=== PATIENT | female | born 1945 | race Caucasian/White ===

== ENCOUNTER 2021-09-14 08:52 | Inpatient (IN) | payer MEDICARE, OTHER, SELFPAY ==
--- NOTE | 2021-09-14 09:02 | XR_ITS ---
WS: [id number] Left hip, 2 views, AP pelvis, 09/14/2021 Clinical Data: pain/fell Comparison: Left hip, 01/17/2014. Findings: There is an intertrochanteric fracture of the left hip. The right hip is intact. The pelvis shows no fractures. The SI joints and pubic symphysis are not remarkable. XR/XR hip LT 2-3V wo/w pel* [id number] Impression: Intertrochanteric fracture of the left hip.
--- NOTE | 2021-09-14 09:03 | ECG_ITS ---
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 Measurements Intervals [place] Rate: 65 P: 77 AR: 147 QRS: 57 QRSD: 86 T: 81 QT: 409 QTc: 428 Interpretive Statements SINUS RHYTHM LEFT VENTRICULAR HYPERTROPHY AND ST-T CHANGE [VOLTAGE CRITERIA PLUS ST/T ABNORMALITY] Compared to ECG 10/23/2017 15:34:19 Left ventricular hypertrophy now present ST (T wave) deviation now present Electronically Signed On 09-14-2021 19:25:27 CDT by Ora Pascual M.D. [id number]
[2021-09-14 09:05] VITALS: BP 152/74; PULSE 69; RESP 18; O2SAT 96; BMI 18.5
[2021-09-14 09:09] LABS: Basophils # 0.1 10^3/uL (0.0-0.1); Basophils % 0.6 %; Eosinophils # 0.3 10^3/uL (0.0-0.8); Eosinophils % 1.9 %; Hematocrit 34.9 % (37.0-47.0); Hemoglobin 11.5 g/dL (11.5-15.3); Lymphocytes # 5.6 10^3/uL (0.8-4.8); Lymphocytes % 40.3 %; Mean Corpuscular Volume 88.1 fl (81-99); Mean Platelet Volume 11.7 fL (7.4-10.4); Monocytes # 1.1 10^3/uL (0.2-0.9); Monocytes % 8.2 %; Neutrophils # 6.67 10^3/uL (1.8-7.7); Neutrophils % 48.1 %; Nucleated Red Blood Cells % 0 %; Platelet Count 215 10^3/cmm (130-400); Red Blood Count 3.96 10^6/uL (4.1-5.3); Red Cell Distribution Width 12.2 % (12.1-15.1); White Blood Count 13.9 10^3/uL (4.0-10.0)
[2021-09-14 09:35] LABS: Alanine Aminotransferase 10 U/L (0-33); Alkaline Phosphatase 109 IU/L (35-105); Anion Gap 15.5 (5-19); Aspartate Amino Transferase 14 U/L (0-32); Blood Urea Nitrogen 23 mg/dL (8-23); Calcium 9.5 mg/dL (8.5-10.5); Carbon Dioxide 25 mmol/L (22-29); Chloride 101 mmol/L (98-107); Globulin 3.1 g/dL (1.3-4.6); Glucose 236 mg/dL (65-115); Osmolality Calculated 295 mOsm/kg (285-295); Potassium 4.5 mmol/L (3.5-5.1); Sodium 137 mmol/L (136-145); Total Bilirubin 0.5 mg/dL (0.15-1.2); Total Protein 7.1 g/dL (6.6-8.7)
[2021-09-14 09:38] LABS: INR 1.03 (0.8-1.2); Partial Thromboplastin Time 24.6 SECONDS (23.9-36.7)
--- NOTE | 2021-09-14 09:39 | ED_ITS ---
HPI - Extremity Problem General: Chief complaint: Extremity Injury, Lower Stated complaint: FALL/ SHORTENING & ROTATION L LEG Time Seen by Provider: 09/14/21 09:01 Source: patient Mode of arrival: ambulatory Limitations: no limitations History of Present Illness: 76-year-old female was going down the stairs at home turned to look at her and lost her balance and stumbled on the stairs went down the stairs she denies striking head denies loss consciousness only a few steps that she has significant external rotation and shortening of her left leg and severe pain was given pain medicine in route discomfortable time she was examined. MD Complaint: extremity pain Onset (ago): minute(s) Pain Consistency: constant Quality: sharp Radiation: distal Relieving factors: rest Exacerbating factors: range of motion and palpation Associated symptoms: Deny arthralgias, chest pain, fever(s), myalgias, rash or short of breath Review of Systems Const: Denies: fever(s), chills, fatigue or malaise ENMT: Denies: throat pain, ear or mastoid pain, nasal discharge or nasal elver estion Card: Denies: chest pain Resp: Denies: dyspnea, productive cough or non-productive cough GI: Denies: abdominal pain, nausea, vomiting, hematemesis, coffee ground emesis, diarrhea, constipation, bloating, hematochezia or melena : Denies: flank pain, difficulty voiding, dysuria, urinary frequency or urinary urgency Skin/Breast: Denies: rash PFSH ED PFSH: Medical History Diabetes Essential tremor Hyperlipidemia Family History Other Cancer Dementia Social History Smoking and tobacco status: never smoked Alcohol intake: never Physical Exam Const: GENERAL APPEARANCE: cooperative ORIENTATION/CONSCIOUSNESS: Yes awake, Yes oriented to person, Yes oriented to place and Yes oriented to time HENMT: COMMON NORMALS: normocephalic, atraumatic and hearing grossly normal bilaterally HEAD & SCALP: normocephalic and atraumatic Neck/C-Spine: COMMON NORMALS: no JVD Resp: COMMON NORMALS: normal respiratory effort, No retractions, No use of accessory muscles and clear to auscultation bilaterally AUSCULTATION: clear to auscultation bilaterally Cardio: COMMON NORMALS: no JVD, regular rate, regular rhythm and No murmurs present (Cardio) RATE: regular rate RHYTHM: regular rhythm GI: COMMON NORMALS: Soft to palpation and No hepatosplenomegaly present AUSCULTATION: Yes normoactive bowel sounds PALPATION: Yes Soft to palpation, No Tenderness to palpation present (GI), No Guarding due to palpation present (GI) and Yes No hepatosplenomegaly present Extremity: OTHER: Left leg externally rotated shortened consistent with hip fracture confirmed on x-ray Neuro: SENSORIUM/ORIENTATION: Yes oriented to person, Yes oriented to place and Yes oriented to time Skin: COMMON NORMALS: no rashes or lesions noted GENERAL SKIN EXAM: no rashes or lesions noted Course Vital Signs: Vital signs: Vital Signs Pulse Rate 69 09/14/21 09:05 Respiratory Rate 18 09/14/21 09:05 Blood Pressure 152/74 09/14/21 09:05 Pulse Oximetry 96 09/14/21 09:05 MDM - Extremity (Nontraumatic) Medical Decision Making Left intertrochanteric hip fracture. Discussed with Dr. Cooper as well as Dr. Ritter who is on-call for Ortho. Will admit to [facility] consult Riya orders [facility]. Medical Records I reviewed the patient's medical records. Lab Data I reviewed the patient's lab results. : 09/14/21 07:59 09/14/21 07:59 Radiology Impressions Hip/Pelvis X-Ray 09/14/21 09:02 Impression: Intertrochanteric fracture of the left hip. Laboratory Results WBC 13.9 10^3/uL (4.0-10.0) H 09/14/21 07:59 RBC 3.96 10^6/uL (4.1-5.3) L 09/14/21 07:59 Hgb 11.5 g/dL (11.5-15.3) 09/14/21 07:59 Hct 34.9 % (37.0-47.0) L 09/14/21 07:59 MCV 88.1 fl (81-99) 09/14/21 07:59 MCH 29.0 pg (28.0-34.0) 09/14/21 07:59 MCHC 33.0 g/dL (30.0-36.0) 09/14/21 07:59 RDW 12.2 % (12.1-15.1) 09/14/21 07:59 Plt Count 215 10^3/cmm (130-400) 09/14/21 07:59 MPV 11.7 fL (7.4-10.4) H 09/14/21 07:59 Neut % (Auto) 48.1 % 09/14/21 07:59 Lymph % (Auto) 40.3 % 09/14/21 07:59 Hettinger % (Auto) 8.2 % 09/14/21 07:59 Eos % (Auto) 1.9 % 09/14/21 07:59 Baso % (Auto) 0.6 % 09/14/21 07:59 Neut # (Auto) 6.67 10^3/uL (1.8-7.7) 09/14/21 07:59 Lymph # (Auto) 5.6 10^3/uL (0.8-4.8) H 09/14/21 07:59 Hettinger # (Auto) 1.1 10^3/uL (0.2-0.9) H 09/14/21 07:59 Eos # (Auto) 0.3 10^3/uL (0.0-0.8) 09/14/21 07:59 Baso # (Auto) 0.1 10^3/uL (0.0-0.1) 09/14/21 07:59 Nucleated RBC % (auto) 0 % 09/14/21 07:59 Nucleated RBCs # 0.0 /100WBC 09/14/21 07:59 PT 13.80 SECONDS (12.1-14.9) 09/14/21 09:20 INR 1.03 (0.8-1.2) 09/14/21 09:20 APTT 24.6 SECONDS (23.9-36.7) 09/14/21 09:20 Sodium 137 mmol/L (136-145) 09/14/21 07:59 Potassium 4.5 mmol/L (3.5-5.1) 09/14/21 07:59 Chloride 101 mmol/L (98-107) 09/14/21 07:59 Carbon Dioxide 25 mmol/L (22-29) 09/14/21 07:59 Anion Gap 15.5 (5-19) 09/14/21 07:59 BUN 23 mg/dL (8-23) 09/14/21 07:59 Creatinine 1.7 mg/dL (0.5-0.9) H 09/14/21 07:59 GFR Calculation Not Reportable 09/14/21 07:59 Glucose 236 mg/dL (65-115) H 09/14/21 07:59 Calculated Osmolality 295 mOsm/kg (285-295) 09/14/21 07:59 Calcium 9.5 mg/dL (8.5-10.5) 09/14/21 07:59 Total Bilirubin 0.5 mg/dL (0.15-1.2) 09/14/21 07:59 AST 14 U/L (0-32) 09/14/21 07:59 ALT 10 U/L (0-33) 09/14/21 07:59 Alkaline Phosphatase 109 IU/L (35-105) H 09/14/21 07:59 Creatine Kinase 39 U/L (26-192) 09/14/21 08:59 Total Protein 7.1 g/dL (6.6-8.7) 09/14/21 07:59 Albumin 4.0 g/dL (3.5-5.2) 09/14/21 07:59 Globulin 3.1 g/dL (1.3-4.6) 09/14/21 07:59 TSH 1.73 uIU/mL (0.27-4.20) 09/14/21 08:59 Discharge Plan Discharge Patient Disposition: Admitted As Inpatient Clinical Impression: Fracture of hip, Diabetes, Hyperlipidemia, CKD (chronic kidney disease) Condition: Stable Coding Level of Care Code ED Rubber Flap Cutter for Chg Fwd Exam Detailed
--- NOTE | 2021-09-14 10:06 | P.HP_ITS ---
Providers/Chief Complaint Admitting Physician: Carlos Melton MD, hospitalist Chief Complaint: FALL/ SHORTENING & ROTATION L LEG History of Present Illness Nallely Potter is a 76 year old female who presents to the hospital with complai nts of left hip pain after a fall. relates she missed a step. No loss of consciousness or other injuries. She does not have frequent falls, but has some imbalance possibly secondary to Parkinson's but this has not been confirmed. She is being followed expectantly by neurology. No recent illness. No chest pain or shortness of breath. Had immediate pain, left hip area following fall. Denies any headache, neck pain, or other pain other than left hip. Review of Systems General: Reports: 10 or more systems reviewed and unremarkable except in HPI and below Const: Denies: fever(s) or chills Eyes: Denies: change in vision ENMT: Denies: throat pain Card: Denies: chest pain Resp: Denies: dyspnea GI: Denies: abdominal pain, hematochezia or melena : Denies: flank pain Musc: Reports: extremity pain; Denies: neck pain Skin/Breast: Denies: rash Neuro: Denies: headache(s) Psych: Denies: anxiety or depression Endo: Denies: polyuria Ramses/Lymph: Denies: easy bruising All/Imm: Denies: urticaria Medications/Allergies Home Medications Medication Instructions Recorded Confirmed Last Taken Type atorvastatin 20 mg tablet 20 mg PO QPM 09/14/21 09/14/21 09/13/21 History metformin 500 mg tablet 1,000 mg PO BID 09/14/21 09/14/21 09/14/21 History propranolol 20 mg tablet 20 mg PO BID 09/14/21 09/14/21 09/14/21 History Allergies Allergy/AdvReac Type Severity Reaction Status Date / Time No Known Allergies Allergy Verified 09/14/21 09:43 PFSH Acute PFSH: Medical History Diabetes Essential tremor Hyperlipidemia Family History (Updated 09/14/21 @ 10:18 by Carlos Melton MD) Other Cancer Dementia Social History Smoking and tobacco status: never smoked Alcohol intake: never Other PFSH information: Supplemental PFSH Information: No surgeries. Vitals/I&O/Wt Last Vital Signs Pulse 69 09/14/21 09:05 Resp 18 09/14/21 09:05 BP 152/74 09/14/21 09:05 Pulse Ox 96 09/14/21 09:05 Weight last 48 hrs Weight 43.091 kg Physical Exam Narrative: General exam is no distress, conversant pleasant HEENT: Atraumatic normocephalic. Pupils equally round. Oropharynx clear. Neck is supple no lymphadenopathy or thyromegaly Cardiovascular regular rate and rhythm without murmur, no S3 or S4 Lungs clear no wheezing or crackles Abdomen is soft with positive bowel sounds. No obvious organomegaly exam was deferred Extremities no cyanosis clubbing or edema. Pulses are intact. Cap refill brisk. Left lower extremity externally rotated and shortened Skin no rash Neuro no obvious focal deficits. Data : 09/14/21 07:59 09/14/21 07:59 Other Labs: EKG demonstrates normal sinus rhythm, normal axis, some evidence of LVH X-ray shows left intertrochanteric hip fracture LFTs normal with exception of alk phos of 109. A&P Assessment and plan (1) Fracture of hip: Has left intertrochanteric hip fracture. No other obvious injuries. Orthopedic consultation Surgery planned for tomorrow No direct contraindications to surgery Heparin for DVT prophylaxis Status: Acute (2) CKD (chronic kidney disease): Unknown if this is acute kidney injury or chronic kidney disease. I suspect chronic kidney disease. Place Ling secondary to hip fracture She denies any anti-inflammatory use at home Repeat creatinine tomorrow after hydration. If does not improve consider renal ultrasound Check CK Check urinalysis Status: Acute (3) Diabetes: Hold metformin Mild sliding scale insulin Consistent carb diet Status: Acute (4) Hyperlipidemia: Continue statin Status: Acute (5) Essential tremor: Continue propranolol Status: Acute Plan Full code Heparin for DVT prophylaxis Attestations Medical Necessity Statement*: Will need greater than 2 midnight stay for evaluation and treatment as well as definitive care for hip fracture with surgery. Coding Level of Care Code Acute Building Construction Contractor for Erin Bhatt Diagnoses Fracture of hip S72.009A CKD (chronic kidney disease) N18.9 Diabetes E11.9 Hyperlipidemia E78.5 Essential tremor G25.0
[2021-09-14 10:49] LABS: Creatine Phosphokinase 39 U/L (26-192); Thyroid Stimulating Hormone 1.73 uIU/mL (0.27-4.20)
[2021-09-14 12:52] VITALS: BP 160/96; PULSE 75; RESP 14; O2SAT 100
--- NOTE | 2021-09-14 14:09 | PM.CONSULT ---
Providers/Reason For Consult Consulting Physician/Specialty*: Orthopedics Reason for Consult*: Left Hip Pain Attending Physician: Carlos Melton MD History of Present Illness History of Present Illness Nallely Potter is a 76 year old female ambulating at her residence on 09/14/2021 when she missed a step fell sustaining injury to her left hip. She felt immediate pain with inability to move without severe sharp stabbing pain. She presented to [facility] emergency room where x-rays confirmed a left hip fracture she was then admitted for more definitive treatment. Orthopedics was consulted. She was evaluated in room 259 bed to with continued left hip pain that she describes as sharp stabbing in nature. Any movement makes it much worse. No obvious left lower extremity deformity. She denies any neck or back pain denies any shoulder or wrist pain. Rest gives her some temporary relief. Any movement makes it much worse. She ranks it as 5 out of 10 on the pain scale. An extensive review of the patient's past medical history, surgical history, allergies, medications, family history, social history, and review of systems was completed Review of Systems General: Reports: 10 or more systems reviewed and unremarkable except in HPI and below Const: Denies: fever(s) or chills Eyes: Denies: change in vision ENMT: Denies: throat pain Card: Denies: chest pain Resp: Denies: dyspnea GI: Denies: abdominal pain, hematochezia or melena : Denies: flank pain Musc: Reports: extremity pain; Denies: neck pain Skin/Breast: Denies: rash Neuro: Denies: headache(s) Psych: Denies: anxiety or depression Endo: Denies: polyuria Ramses/Lymph: Denies: easy bruising All/Imm: Denies: urticaria Medications/Allergies Home Medications Medication Instructions Recorded Confirmed Last Taken Type atorvastatin 20 mg tablet 20 mg PO QPM 09/14/21 09/14/21 09/13/21 History metformin 500 mg tablet 1,000 mg PO BID 09/14/21 09/14/21 09/14/21 History propranolol 20 mg tablet 20 mg PO BID 09/14/21 09/14/21 09/14/21 History Allergies Allergy/AdvReac Type Severity Reaction Status Date / Time No Known Allergies Allergy Verified 09/14/21 09:43 PFSH Acute PFSH: Medical History Diabetes Essential tremor Hyperlipidemia Family History Other Cancer Dementia Social History Smoking and tobacco status: never smoked Alcohol intake: never Vitals/I&O/Wt Last Vital Signs Pulse 75 09/14/21 12:52 Resp 14 09/14/21 12:52 BP 160/96 09/14/21 12:52 Pulse Ox 100 09/14/21 12:52 Weight last 48 hrs Weight 95 lb Physical Exam Narrative: She is alert and orient x3 she has a good general appearance normal mood and affect. She has obvious deformity of the left lower extremity. Positive logroll on the left negative on the right. She has palpable pain over the left hip negative over the right. She has no palpable pain in the low back or thoracic region. Her legs are warm skin is warm good cap refill she wiggles all digits dorsalis pedis and posterior tib pulses are palpable on the on both lower extremities, calves are supple, no medial thigh tenderness. She wiggles all digits. No palpable pain in the cervical spine full range of motion both upper extremities at the shoulders elbows and wrists hands warm well cap refill moves all digits with good sensation light touch. HENMT: COMMON NORMALS: normocephalic and atraumatic HEAD & SCALP: normocephalic and atraumatic Resp: COMMON NORMALS: normal respiratory effort Cardio: COMMON NORMALS: regular rate and regular rhythm RATE: regular rate RHYTHM: regular rhythm GI: COMMON NORMALS: Soft to palpation and non-tender PALPATION: Yes Soft to palpation : COMMON NORMALS: Yes no CVA tenderness BLADDER/KIDNEY EXAM: Yes no CVA tenderness Back/Pelvis: COMMON NORMALS: no CVA tenderness Psych: COMMON NORMALS: mental status grossly normal and cooperative Data : 09/14/21 07:59 09/14/21 07:59 A&P Assessment and plan (1) Intertrochanteric fracture of left hip: Discussed with her treatment options which involve open reduction internal fixation of her left hip with a trochanteric femoral nail. Discussed the procedure at length with her. She wished to proceed. We will keep her n.p.o. after midnight. Should be nonweightbearing until after surgery. Encourage incentive spirometry. Discussed this treatment course at length with Dr. Ritter agrees with above-stated plan. Status: Acute Coding Level of Care Code New Pt Acute Horticultural Farmer for Jeffreyg Fwd Patient Type New History Problem Focused Exam Problem Focused Medical Decision Making Moderate Complexity Diagnoses Intertrochanteric fracture of left hip S72.142B
[2021-09-14 15:12] VITALS: BMI 18.5
[2021-09-14 15:48] VITALS: BP 174/85; PULSE 80; RESP 16; TEMP 37.2; O2SAT 96
[2021-09-14 17:05] LABS: Glucose Point of Care 234 mg/dL (70-110)
[2021-09-14 17:34] LABS: Protein Urine 2+ (Negative); Specific Gravity, Urine 1.015 (1.005-1.030); Urine Appearance Hazy (CLEAR); Urine Color Yellow (Yellow); pH Urine 5 (5-7)
[2021-09-14] MEDS: sodium chloride 0.9% 1,000 ML 75 ML IV (17:34)
[2021-09-14] MEDS: atorvastatin 40 mg Tablet 20 MG PO (17:34)
[2021-09-14 17:35] LABS: Add Urine Microscopic? YES; Bilirubin Urine Neg (Negative); Blood Urine Neg (Negative); Glucose Urine UA 2+ (Normal); Ketones Urine Negative (Negative); Leukocyte Esterase Urine 2+ (Negative); Nitrate Urine Positive (Negative); Urobilinogen Urine Norm (Negative)
[2021-09-14] MEDS: heparin 5,000 unit/mL INJ 1 mL 5000 UNIT SUBCUT (17:35)
[2021-09-14] MEDS: propranolol 20 mg Tablet PO (17:35)
[2021-09-14] MEDS: insulin lispro 100 unit/1 mL SUBCUT ×2 (17:35→21:11)
[2021-09-14 17:48] LABS: Add Urine Culture? Yes; Bacteria Urine 2+ /hpf; RBC Urine 0-4 /hpf (0-2); Squamous Epithelial Cell Urine 0-4 /hpf (0-5); WBC Urine 15-25 /hpf (0-5)
[2021-09-14 17:52] VITALS: O2SAT 95
[2021-09-14 20:00] VITALS: BP 168/74; PULSE 74; RESP 22; TEMP 37.2; O2SAT 92
[2021-09-14 20:13] VITALS: RESP 18
[2021-09-14] MEDS: morphine 4 mg/mL SDV 1 mL IVP (20:13)
[2021-09-14 21:05] LABS: Glucose Point of Care 169 mg/dL (70-110)
[2021-09-15] VITALS (23 sets, daily range): BP systolic 147–227; BP diastolic 60–109; PULSE 65–89; RESP 15–23; TEMP 36.3–37.4; O2SAT 91–100
--- NOTE | 2021-09-15 | SCC_ITS ---
Procedure done: 1. Left IM hip nail for IT fracture 44.3 seconds of fluoroscopic guidance, for a cumulative dose of 4.49 mGy, was provided to Dr. Ritter by the radiology department. C-arm images of the LT hip were saved for the patient's permanent record. [facility]
[2021-09-15] MEDS: sodium chloride 0.9% 1,000 ML 75 ML IV (04:21)
[2021-09-15] MEDS: sodium chloride 0.9% 1,000 ML 30 ML IV (06:25)
[2021-09-15 06:36] LABS: Basophils # 0.1 10^3/uL (0.0-0.1); Basophils % 0.5 %; Eosinophils # 0.2 10^3/uL (0.0-0.8); Eosinophils % 1.4 %; Hematocrit 32.9 % (37.0-47.0); Hemoglobin 10.3 g/dL (11.5-15.3); Lymphocytes # 3.4 10^3/uL (0.8-4.8); Lymphocytes % 26.3 %; Mean Corpuscular HGB Conc 31.3 g/dL (30.0-36.0); Mean Corpuscular Hemoglobin 28.3 pg (28.0-34.0); Mean Corpuscular Volume 90.4 fl (81-99); Mean Platelet Volume 11.2 fL (7.4-10.4); Monocytes % 7.4 %; Neutrophils # 8.19 10^3/uL (1.8-7.7); Neutrophils % 63.9 %; Nucleated Red Blood Cells % 0 %; Platelet Count 173 10^3/cmm (130-400); Red Blood Count 3.64 10^6/uL (4.1-5.3); Red Cell Distribution Width 12.2 % (12.1-15.1); White Blood Count 12.8 10^3/uL (4.0-10.0)
--- NOTE | 2021-09-15 06:50 | ANES.PREANE2 ---
Documented by User: Adelita Lyles CRNA 09/15/21 07:30 Pre-Anesthetic Assessment Height/Weight: Height 1.52 m Weight 54.703 kg Temp Pulse Resp BP Pulse Ox 99.3 F 77 17 193/87 96 09/15/21 06:19 09/15/21 06:19 09/15/21 06:19 09/15/21 06:19 09/15/21 06:19 Preop Diagnosis: L hip fracture Operation Date: 09/15/21 07:00 Proposed Procedures p Trochanteric Femoral Nail(Left) - Rosas Ritter DO Familial anesthetic complications: none Was Beta Sreedhar taken within 24 hours: N/A Was Clonidine taken within 24 hours: N/A Last intake: Intake Last Liquid Date 09/14/21 Last Liquid Time 23:00 Last Solid Date 09/14/21 Last Solid Time 20:00 Social No alcohol and No tobacco Exam alert, oriented x 3, clear to auscultation bilaterally and regular rate & rhythm Airway Submandibular: within normal limits Cervical ROM: within normal limits Mallampati: Class II Dentition: false (top dentures. full bottom) History/ROS No significant history except as noted Pulmonary None reported CV/HEM None reported None reported Hepatic None reported GI None reported Metabolic Diabetes Mellitus (metofrmin only) and Hyperlipidemia Musc/skel None reported Neuropsych None reported Anesthetic Plan ASA status: 2 Anesthesia: Anesthesia Evaluation and General Risk of > 500 ml blood loss (7ml/kg in children): No Medications/Allergies Home Medications Medication Instructions Recorded Confirmed Last Taken Type atorvastatin 20 mg tablet 20 mg PO QPM 09/14/21 09/14/21 09/13/21 History metformin 500 mg tablet 1,000 mg PO BID 09/14/21 09/14/21 09/14/21 History propranolol 20 mg tablet 20 mg PO BID 09/14/21 09/14/21 09/14/21 History Allergies Allergy/AdvReac Type Severity Reaction Status Date / Time No Known Allergies Allergy Verified 09/14/21 09:43 Current Medications Generic Name Dose Route Start Last Admin Trade Name Freq PRN Reason Stop Dose Admin Atorvastatin Calcium 20 mg 09/14/21 18:00 09/14/21 17:34 Atorvastatin 40 Mg Tablet PO 20 mg QPM JUNE Administration Heparin Sodium (Porcine) 5,000 unit 09/14/21 18:00 09/15/21 05:01 Heparin 5,000 Unit/Ml Inj 1 Ml SUBCUT Not Given Q12H JUNE Sodium Chloride 1,000 mls @ 75 mls/hr 09/14/21 15:06 09/15/21 04:21 Sodium Chloride 0.9% IV 75 mls/hr .[id number] JUNE Administration Sodium Chloride 1,000 mls @ 30 mls/hr 09/15/21 06:30 09/15/21 06:25 Sodium Chloride 0.9% IV 09/16/21 06:29 30 mls/hr .Q24H JUNE Administration Insulin Human Lispro 0 unit 09/14/21 15:06 09/14/21 21:11 Insulin Lispro 100 Unit/1 Ml SUBCUT 2 unit WM&BEDTIME JUNE Administration Protocol Morphine Sulfate 4 mg 09/14/21 15:06 09/14/21 20:13 Morphine 4 Mg/Ml Sdv 1 Ml IVP 4 mg Q4H PRN Administration SEVERE PAIN Propranolol HCl 20 mg 09/14/21 18:00 09/14/21 17:35 Propranolol 20 Mg Tablet PO 20 mg BID JUNE Administration [facility] Anesthesia Medical History Diabetes Essential tremor Hyperlipidemia Family History Other Cancer Dementia Social History Smoking and tobacco status: never smoked Alcohol intake: never Supplemental [facility] Information No surgeries. Data Anesthesia : 09/15/21 06:27 09/15/21 06:27 Short CBC 09/14/21 09/15/21 Range/Units 07:59 06:27 WBC 13.9 H 12.8 H (4.0-10.0) 10^3/uL Hgb 11.5 10.3 L (11.5-15.3) g/dL Hct 34.9 L 32.9 L (37.0-47.0) % MCV 88.1 90.4 (81-99) fl Plt Count 215 173 (130-400) 10^3/cmm Neut % (Auto) 48.1 63.9 % Neut # (Auto) 6.67 8.19 H (1.8-7.7) 10^3/uL BMP 09/14/21 09/15/21 07:59 06:27 Sodium 137 132 L Potassium 4.5 4.9 Chloride 101 99 Carbon Dioxide 25 24 BUN 23 27 H Creatinine 1.7 H 1.5 H Glucose 236 H 209 H Calcium 9.5 8.7 Cardiac Enzymes 09/14/21 Range/Units 08:59 Creatine Kinase 39 (26-192) U/L Liver Function 09/14/21 09/15/21 Range/Units 07:59 06:27 Total Bilirubin 0.5 0.5 (0.15-1.2) mg/dL AST 14 12 (0-32) U/L ALT 10 8 (0-33) U/L Alkaline Phosphatase 109 H 90 (35-105) IU/L Albumin 4.0 3.6 (3.5-5.2) g/dL Urine 09/14/21 Range/Units 17:00 Urine Color Yellow (Yellow) Urine Appearance Hazy A (CLEAR) Urine pH 5 (5-7) Ur Specific Castell 1.015 (1.005-1.030) Urine Protein 2+ H (Negative) Urine Glucose (UA) 2+ H (Normal) Urine Ketones Negative (Negative) Urine Nitrate Positive H (Negative) Urine Bilirubin Neg (Negative) Ur Leukocyte Esterase 2+ H (Negative) Urine RBC 0-4 H (0-2) /hpf Urine WBC 15-25 H (0-5) /hpf Coags 09/14/21 09:20 PT 13.80 INR 1.03 APTT 24.6 Cardiac Studies: No Data to Display
--- NOTE | 2021-09-15 06:52 | W.PM.OPSUD ---
Surgery/Procedure H&P Update DATE OF PROCEDURE: September 15, 2021 DATE H&P PERFORMED: 09/14/21 H&P UPDATE INFORMATION: I have reviewed H&P completed within last 30 days, I have examined patient prior to procedure and No changes to prior documentation PLANNED PROCEDURE: Operation Date: 09/15/21 07:00 Proposed Procedures p Trochanteric Femoral Nail(Left) - Rosas Ritter DO
[2021-09-15 06:53] LABS: Alanine Aminotransferase 8 U/L (0-33); Albumin Level 3.6 g/dL (3.5-5.2); Alkaline Phosphatase 90 IU/L (35-105); Anion Gap 13.9 (5-19); Aspartate Amino Transferase 12 U/L (0-32); Blood Urea Nitrogen 27 mg/dL (8-23); Calcium 8.7 mg/dL (8.5-10.5); Carbon Dioxide 24 mmol/L (22-29); Chloride 99 mmol/L (98-107); Glucose 209 mg/dL (65-115); Osmolality Calculated 285 mOsm/kg (285-295); Potassium 4.9 mmol/L (3.5-5.1); Sodium 132 mmol/L (136-145); Total Bilirubin 0.5 mg/dL (0.15-1.2); Total Protein 6.6 g/dL (6.6-8.7)
[2021-09-15] MEDS: ceFAZolin 2,000 MG in sodium chloride 0.9% (plus) 50 ML 100 MG IV ×3 (07:00→23:02)
--- NOTE | 2021-09-15 07:38 | PM.OP ---
Operative Report Date of procedure: September 15, 2021 Pre-op diagnosis: Preop Diagnosis L hip fracture Post-op diagnosis: same Procedure done: 1. Left IM hip nail for IT fracture Surgeon: Rosas Ritter Neonatal Intensive Care Nurse: Edgar Olvera Estimated blood loss (mL): 5 Procedure: 1. Left IM hip nail for IT fracture Patient was brought to the operative suite after undergoing anesthesia patient was placed on the [place] fracture table. All areas impingement well-padded. Patient's left leg was hooked into the boot and internal rotation and traction was applied to reduce the fracture. C-arm ensured that the fracture was in good position. Leg was then prepped and draped in normal sterile fashion. Skin incision was then made over the greater trochanter. And then the starting pin was inserted opening reamer was inserted and then a gamma nail was inserted. Once the nail was inserted the appropriate position a guidewire was then placed into the center center position of the femoral head. This was then reamed and then the lag screw was placed this was a 95 mm lag screw. After the screws placed the locking bolt was tightened down and taken off one half turn. Extension was brought to the distal locking screw. This was measured to be 35 and a distal locking screw was placed. Wounds were then irrigated and closed with Vicryl and solomon. Sterile dressings were applied and patient was transferred to the PACU in stable condition.
[2021-09-15] MEDS: metoprolol tartrate 1 mg/1 mL SDV 5 mL 5 MG IVP (08:26)
--- NOTE | 2021-09-15 08:40 | PM.PN ---
Subjective Subjective: Nallely is interviewed directly postoperative. She denies any significant pain currently. She denies any shortness of breath. She is excited her surgery went well. Medications: Reviewed: Yes Vitals/I&O/Wt Last Vital Signs Temp 98.9 F 09/15/21 07:53 Pulse 65 09/15/21 08:35 Resp 16 09/15/21 08:35 BP 209/97 09/15/21 08:35 Pulse Ox 96 09/15/21 08:35 09/14/21 09/15/21 09/15/21 22:59 06:59 14:59 Intake Total 740 / 740 1148.75 / 1888.75 450 / 450 Output Total 600 / 600 100 / 700 575 / 575 Balance 140 / 140 1048.75 / 1188.75 -125 / -125 Weight last 48 hrs Weight 54.703 kg Weight 43.091 kg Weight 43.091 kg Physical Exam Narrative: General exam is no distress, sleepy but conversive Neck is supple no lymphadenopathy or thyromegaly Cardiovascular regular rate and rhythm without murmur, no S3 or S4 Lungs clear no wheezing or crackles Abdomen is soft with positive bowel sounds. No obvious organomegaly exam Ling noted Extremities no cyanosis clubbing or edema. Pulses are intact. Cap refill brisk. Left lower extremity with dressing in the hip region clean and dry Skin no rash Urinary Catheter Management: Ling: Cath Placed During This Visit: yes Urinary Catheter Date of Insertion: 09/14/21 Urinary Catheter Time of Insertion: 14:00 Data : 09/15/21 06:27 09/15/21 06:27 A&P Assessment and plan (1) Fracture of hip: Has left intertrochanteric hip fracture. No other obvious injuries. Orthopedic consultation appreciated She is directly postoperative left hip IM nailing Lovenox okay for DVT prophylaxis Status: Acute (2) CKD (chronic kidney disease): Unknown if this is acute kidney injury or chronic kidney disease. I suspect chronic kidney disease. Place Ling secondary to hip fracture She denies any anti-inflammatory use at home This has improved somewhat CK was checked and not elevated Continue to follow for further improvement Urinalysis shows questionable UTI. Rocephin initiated Avoid renal toxic medication, NSAIDs Status: Acute (3) Diabetes: Hold metformin Mild sliding scale insulin Consistent carb diet Status: Acute (4) Hyperlipidemia: Continue statin Status: Acute (5) Essential tremor: Continue propranolol Status: Acute Plan Possible UTI. Initiate Rocephin. Await urine culture Full code Lovenox for DVT prophylaxis Attestations Medical Necessity Statement*: Needs continued hospitalization for close monitoring following hip fracture repair Coding Level of Care Code Acute Motor Vehicle Representative for Chg Fwd Diagnoses Fracture of hip S72.009A CKD (chronic kidney disease) N18.9 Diabetes E11.9 Hyperlipidemia E78.5 Essential tremor G25.0
[2021-09-15] MEDS: hyDRALAzine 20 mg/mL INJ 1 mL 10 MG IVP (08:51)
--- NOTE | 2021-09-15 09:51 | XR_ITS ---
WS: [id number] Left hip, C-arm fluoroscopy, 09/15/2021 Clinical Data: OR PICS Comparison: None. Findings: Dr. Ritter inserted a left hip nail with a proximal left intramedullary nkechi to reduce the left hip int ertrochanteric fracture. XR/XR hip LT 2-3V wo/w pel* 61602 Impression: Internal fixation of left hip intertrochanteric fracture.
[2021-09-15 11:07] LABS: Glucose Point of Care 239 mg/dL (70-110)
--- NOTE | 2021-09-15 12:17 | ANE.PACU2 ---
Inpatient post-anesthesia follow up: Airway intact: Yes Vital signs: Temperature 98.0 F Pulse Rate 74 Respiratory Rate 16 Blood Pressure 169/77 Pulse Oximetry 95 Oxygen Delivery Me thod [ Room Air Current Rate & Del dio] Oxygen Delivery Me thod Nasal Cannula Oxygen Flow Rate 1.5 Fraction of Inspir ed Oxygen Hydration adequate: Yes Nausea and vomiting: No Pain level: 3 Mental status: Baseline
[2021-09-15] MEDS: insulin lispro 100 unit/1 mL SUBCUT ×3 (12:26→21:11)
[2021-09-15 17:06] LABS: Glucose Point of Care 457 mg/dL (70-110)
[2021-09-15 17:06] LABS: Glucose Point of Care 464 mg/dL (70-110)
[2021-09-15] MEDS: atorvastatin 40 mg Tablet 20 MG PO (17:41)
[2021-09-15] MEDS: propranolol 20 mg Tablet PO (17:41)
[2021-09-15] MEDS: enoxaparin 30 mg/0.3 mL Syringe SUBCUT (20:23)
[2021-09-15 21:04] LABS: Glucose Point of Care 246 mg/dL (70-110)
[2021-09-16] VITALS: BP 163/73; PULSE 73; RESP 18; TEMP 36.9; O2SAT 96
[2021-09-16 04:00] VITALS: BP 193/68; PULSE 79; RESP 19; TEMP 36.9; O2SAT 92
[2021-09-16] MEDS: hyDRALAzine 20 mg/mL INJ 1 mL 10 MG IVP (04:54)
[2021-09-16] MEDS: sodium chloride 0.9% 1,000 ML 75 ML IV (05:05)
[2021-09-16 05:08] LABS: Basophils # 0.1 10^3/uL (0.0-0.1); Basophils % 0.3 %; Eosinophils % 0.2 %; Hematocrit 26.3 % (37.0-47.0); Hemoglobin 8.4 g/dL (11.5-15.3); Lymphocytes # 3.3 10^3/uL (0.8-4.8); Lymphocytes % 16.6 %; Mean Corpuscular HGB Conc 31.9 g/dL (30.0-36.0); Mean Corpuscular Hemoglobin 28.8 pg (28.0-34.0); Mean Corpuscular Volume 90.1 fl (81-99); Mean Platelet Volume 11.7 fL (7.4-10.4); Monocytes # 1.5 10^3/uL (0.2-0.9); Monocytes % 7.2 %; Neutrophils # 15.14 10^3/uL (1.8-7.7); Neutrophils % 75.1 %; Nucleated Red Blood Cells % 0 %; Platelet Count 165 10^3/cmm (130-400); Red Blood Count 2.92 10^6/uL (4.1-5.3); Red Cell Distribution Width 12.1 % (12.1-15.1); White Blood Count 20.2 10^3/uL (4.0-10.0)
[2021-09-16 05:31] LABS: Anion Gap 15.4 (5-19); Blood Urea Nitrogen 28 mg/dL (8-23); Calcium 8.2 mg/dL (8.5-10.5); Carbon Dioxide 19 mmol/L (22-29); Chloride 105 mmol/L (98-107); Glucose 148 mg/dL (65-115); Osmolality Calculated 288 mOsm/kg (285-295); Potassium 4.4 mmol/L (3.5-5.1); Sodium 135 mmol/L (136-145)
[2021-09-16 06:14] LABS: Glucose Point of Care 189 mg/dL (70-110)
[2021-09-16] MEDS: ceFAZolin 2,000 MG in sodium chloride 0.9% (plus) 50 ML 100 MG IV (06:33)
[2021-09-16 07:49] VITALS: BP 168/71; PULSE 91; RESP 16; TEMP 36.8; O2SAT 93
[2021-09-16 08:39] LABS: Glucose Point of Care 216 mg/dL (70-110)
[2021-09-16] MEDS: cefTRIAXone 1,000 MG in sodium chloride 0.9% (plus) 50 ML 100 MG IV (09:04)
[2021-09-16] MEDS: insulin lispro 100 unit/1 mL SUBCUT ×2 (09:06→12:55)
[2021-09-16] MEDS: propranolol 20 mg Tablet PO (09:07)
[2021-09-16 11:43] LABS: Glucose Point of Care 226 mg/dL (70-110)
[2021-09-16 11:45] VITALS: BP 153/74; PULSE 74; RESP 16; TEMP 36.8; O2SAT 93
--- NOTE | 2021-09-16 12:33 | P.DS_ITS ---
Discharge Providers Date of Admission: 09/14/21 10:16 Date of Discharge: September 16, 2021 Attending Provider at Admission: Carlos Melton MD Attending Provider at Discharge: Ajith Courtney MD Diagnoses at Discharge Discharge Diagnosis (1) Fracture of hip: Status: Acute (2) CKD (chronic kidney disease): Status: Acute (3) Diabetes: Status: Acute (4) Hyperlipidemia: Status: Acute (5) Essential tremor: Status: Acute Reason for Visit Reason for Visit: FALL/ SHORTENING & ROTATION L LEG Hospital Course Hospital Course 76 year old female who presents to the hospital with complaints of left hip pain after a fall.? relates she missed a step.? No loss of consciousness or other injuries. She was admitted for management of ?left intertrochanteric hip fracture.? S/p Left IM hip nail. Also managed for QUITA on CKD likely prerenal was responding well to IV fluids, serum creatinine was trending down on discharge. Overall patient responded well to above surgical management, and is being discharged in stable condition to home, she will continue to follow orthopedic and primary care physician as outpatient. Physical Exam Const: COMMON NORMALS: patient oriented x3 HENMT: COMMON NORMALS: normocephalic and atraumatic HEAD & SCALP: normocephalic and atraumatic Resp: COMMON NORMALS: clear to auscultation bilaterally AUSCULTATION: clear to auscultation bilaterally Cardio: COMMON NORMALS: regular rate, regular rhythm, S1 normal heart sound present, S2 normal heart sound present, No gallops present (Cardio), No murmurs present (Cardio), No rub (Cardio) and Peripheral pulses 2+ throughout RATE: regular rate RHYTHM: regular rhythm HEART SOUNDS: S1 normal heart sound present and S2 normal heart sound present PERIPHERAL PULSES: Peripheral pulses 2+ throughout GI: COMMON NORMALS: Normal to inspection, nondistended, normoactive bowel sounds present, Soft to palpation, non-tender, No hepatosplenomegaly present and no masses AUSCULTATION: Yes normoactive bowel sounds PALPATION: Yes Soft to palpation and Yes No hepatosplenomegaly present RECTAL EXAM: deferred Extremity: COMMON NORMALS: no clubbing, cyanosis or edema and no pedal edema Neuro: COMMON NORMALS: patient oriented x3 Urinary Catheter Management: Ling: Cath Placed During This Visit: yes Reason for Continuing Indwelling Catheter: Required Immobilization for Trauma or Surgery or Anesthesia Urinary Catheter Date of Insertion: 09/14/21 Urinary Catheter Time of Insertion: 14:00 Discharge Data Studies Completed and Pending Completed Studies During Hospitalization Category Date Time Status XR hip LT 2-3V wo/w pel* [id number] Routine Exams 09/15/21 09:51 Completed XR hip LT 2-3V wo/w pel* [id number] Stat Exams 09/14/21 09:02 Completed Pending at discharge Category Date Time Status C-arm Fluoroscopy 60087 Routine Exams 09/15/21 06:26 Taken Radiology Impressions Hip/Pelvis X-Ray 09/15/21 09:51 Impression: Internal fixation of left hip intertrochanteric fracture. Laboratory Results WBC 20.2 10^3/uL (4.0-10.0) H 09/16/21 04:42 RBC 2.92 10^6/uL (4.1-5.3) L 09/16/21 04:42 Hgb 8.4 g/dL (11.5-15.3) L 09/16/21 04:42 Hct 26.3 % (37.0-47.0) L 09/16/21 04:42 MCV 90.1 fl (81-99) 09/16/21 04:42 MCH 28.8 pg (28.0-34.0) 09/16/21 04:42 MCHC 31.9 g/dL (30.0-36.0) 09/16/21 04:42 RDW 12.1 % (12.1-15.1) 09/16/21 04:42 Plt Count 165 10^3/cmm (130-400) 09/16/21 04:42 MPV 11.7 fL (7.4-10.4) H 09/16/21 04:42 Neut % (Auto) 75.1 % 09/16/21 04:42 Lymph % (Auto) 16.6 % 09/16/21 04:42 [place] % (Auto) 7.2 % 09/16/21 04:42 Eos % (Auto) 0.2 % 09/16/21 04:42 Baso % (Auto) 0.3 % 09/16/21 04:42 Neut # (Auto) 15.14 10^3/uL (1.8-7.7) H 09/16/21 04:42 Lymph # (Auto) 3.3 10^3/uL (0.8-4.8) 09/16/21 04:42 [place] # (Auto) 1.5 10^3/uL (0.2-0.9) H 09/16/21 04:42 Eos # (Auto) 0.0 10^3/uL (0.0-0.8) 09/16/21 04:42 Baso # (Auto) 0.1 10^3/uL (0.0-0.1) 09/16/21 04:42 Nucleated RBC % (auto) 0 % 09/16/21 04:42 Nucleated RBCs # 0.0 /100WBC 09/16/21 04:42 PT 13.80 SECONDS (12.1-14.9) 09/14/21 09:20 INR 1.03 (0.8-1.2) 09/14/21 09:20 APTT 24.6 SECONDS (23.9-36.7) 09/14/21 09:20 Sodium 135 mmol/L (136-145) L 09/16/21 04:42 Potassium 4.4 mmol/L (3.5-5.1) 09/16/21 04:42 Chloride 105 mmol/L (98-107) 09/16/21 04:42 Carbon Dioxide 19 mmol/L (22-29) L 09/16/21 04:42 Anion Gap 15.4 (5-19) 09/16/21 04:42 BUN 28 mg/dL (8-23) H 09/16/21 04:42 Creatinine 1.2 mg/dL (0.5-0.9) H 09/16/21 04:42 GFR Calculation Not Reportable 09/16/21 04:42 Glucose 148 mg/dL (65-115) H 09/16/21 04:42 POC Glucose 226 mg/dL (70-110) H 09/16/21 10:50 Calculated Osmolality 288 mOsm/kg (285-295) 09/16/21 04:42 Calcium 8.2 mg/dL (8.5-10.5) L 09/16/21 04:42 Total Bilirubin 0.5 mg/dL (0.15-1.2) 09/15/21 06:27 AST 12 U/L (0-32) 09/15/21 06:27 ALT 8 U/L (0-33) 09/15/21 06:27 Alkaline Phosphatase 90 IU/L (35-105) 09/15/21 06:27 Creatine Kinase 39 U/L (26-192) 09/14/21 08:59 Total Protein 6.6 g/dL (6.6-8.7) 09/15/21 06:27 Albumin 3.6 g/dL (3.5-5.2) 09/15/21 06:27 Globulin 3.0 g/dL (1.3-4.6) 09/15/21 06:27 TSH 1.73 uIU/mL (0.27-4.20) 09/14/21 08:59 Urine Color Yellow (Yellow) 09/14/21 17:00 Urine Appearance Hazy (CLEAR) A 09/14/21 17:00 Urine pH 5 (5-7) 09/14/21 17:00 Ur Specific [place] 1.015 (1.005-1.030) 09/14/21 17:00 Urine Protein 2+ (Negative) H 09/14/21 17:00 Urine Glucose (UA) 2+ (Normal) H 09/14/21 17:00 Urine Ketones Negative (Negative) 09/14/21 17:00 Urine Blood Neg (Negative) 09/14/21 17:00 Urine Nitrate Positive (Negative) H 09/14/21 17:00 Urine Bilirubin Neg (Negative) 09/14/21 17:00 Urine Urobilinogen Norm mg/dL (Negative) 09/14/21 17:00 Ur Leukocyte Esterase 2+ (Negative) H 09/14/21 17:00 Urine RBC 0-4 /hpf (0-2) H 09/14/21 17:00 Urine WBC 15-25 /hpf (0-5) H 09/14/21 17:00 Ur Squamous Epith Cells 0-4 /hpf (0-5) H 09/14/21 17:00 Amorphous Sediment Not Reportable 09/14/21 17:00 Urine Bacteria 2+ /hpf (NONE) H 09/14/21 17:00 Vitals Last Vital Signs Temp 98.2 F 09/16/21 11:45 Pulse 74 09/16/21 11:45 Resp 16 09/16/21 11:45 BP 153/74 09/16/21 11:45 Pulse Ox 93 09/16/21 11:45 Discharge Plan Discharge Patient Disposition: Home Condition: Stable Prescriptions: New enoxaparin 30 mg/0.3 mL Syringe 30 mg SUBCUT Q24H 14 Days Qty: 4.2 0RF acetaminophen 325 mg Tablet 650 mg PO Q6H PRN (Reason: Mild/Mod Pain Or Temp >/= 101) 14 Days Qty: 20 0RF Percocet 5-325 mg tablet 1 tab PO Q6H Qty: 14 0RF Continued metformin 500 mg Tablet 1,000 mg PO BID 0RF atorvastatin 20 mg Tablet 20 mg PO QPM 0RF propranolol 20 mg Tablet 20 mg PO BID 0RF Discharge Orders: Discharge Order (Routine); Ordered 09/16/21 Ordered By: Ajith Courtney Other Ambulatory Orders: DME: [employer] (Order) Location: None Selected Ordered By: Ajith Courtney DME: Walker (Order) Location: None Selected Ordered By: Carlos Melton Referrals: [facility] [Outside] Rosas Ritter DO [Physician] - 2 weeks (Please call Saturday to schedule a follow up appointment. ) Osmin Oliva DO [Physician] - 1 week (Please call Saturday to schedule a follow up appointment.) Patient Instructions: Oxycodone, Rapid Release (By mouth), Enoxaparin (By injection) (Lovenox), How to Give a Subcutaneous Injection (GEN), Closed Reduction Internal Fixation of Leg Fracture in Adults (DC), Opioid Safety Activity Restrictions/Additional Instructions: You are being discharged from the hospital today during which time you have been under the care of Dr. Ritter. You had a hip fracture. You were treated for this injury with intramedullary nail. You may resume you normal diet (including any special diets as directed by your primary doctor) as well as your home medications. You should follow up with you primary doctor if you have any questions regarding medication you took prior to your stay in the hospital. You may take your pain medication as prescribed. After the first few days, take your pain medication as needed. Do not drive or drink alcohol while taking your pain medication. Your injury may increase your risk of developing a blood clot,or DVT, in your arm or leg. This could potentially dislodge and travel to your lungs and become a life threatening condition called apulmonary embolus,or PE. You have been prescribed Lovenox to be taken to prevent this. Frequent movement of the legs will also help prevent this from occurring. If you develop any new or worsening cough, chestpain, bloody sputum or shortness of breath, call 911 or go to the EmergencyRoom. Always keep your surgical incision/dressing clean and dry. If you experience increasing pain at your incision site, redness, swelling, increasing discharge, foul odors, or fevers (greater than 100.4), night sweats or chills you should call the office at the above number. If you feel this is an emergency you should be evaluated in the Emergency Department of a nearby hospital. Orthopedic Patient Instructions Summary: Weight Bearing: Weight-bear as tolerated Activity: As tolerated. Diet: Regular. Splint Care: Wound Care: Keep dressing clean and dry. Anticoagulation: Lovenox Pain Medication: Take only as needed. Ice, rest and elevation will be of great benefit. Please plan to follow-up [facility] Dr Ritter in 2 weeks. You will need to call the clinic [phone] to schedule this visit. Thank you far allowing me to participate in your care. Do not hesitate to call the office with any questions or concerns. Discharge Attestations Time Spent in Discharge Care*: greater than 30 min Specific Discharge Activities: educating patient, educating and/or supporting family/caregiver, discussing with pcp/other providers, discussing with patient case coordinator/social workers/dc planners, documenting/other paperwork and evaluating patient/reviewing data Quality Metrics Clinical Quality Measures [ No reported AMI, CVA or VTE this stay] Coding Level of Care Code Acute [facility] note Diagnoses Fracture of hip S72.009A CKD (chronic kidney disease) N18.9 Diabetes E11.9 Hyperlipidemia E78.5 Essential tremor G25.0
[2021-09-16 16:00] VITALS: BP 164/73; PULSE 84; RESP 16; TEMP 36.9; O2SAT 96
== END 2021-09-16 17:23 | disposition home health service (06) | DRG 481 ==
LOC: ER 10:04 → MEDSURG 12:07
PROVIDERS: Orthopaedic Surgery; Admitting Provider Internal Medicine; Emergency Provider Family Medicine; Visit Provider Internal Medicine
PROC: 0QS706Z Reposition Left Upper Femur with Intramedullary Internal Fixation Device, Open Approach (ICD-10-PCS; CPT 27245; principal; 2021-09-15 07:00)
DX: S72.142A Displaced intertrochanteric fracture of left femur, initial encounter for closed fracture (principal); N17.9 Acute kidney failure, unspecified; N39.0 Urinary tract infection, site not specified; W10.8XXA Fall (on) (from) other stairs and steps, initial encounter; E11.22 Type 2 diabetes mellitus with diabetic chronic kidney disease; N18.9 Chronic kidney disease, unspecified; G25.0 Essential tremor; E78.5 Hyperlipidemia, unspecified; Z79.84 Long term (current) use of oral hypoglycemic drugs
CPT/HCPCS: 36415; 36416; 51702; 73502; 76000; 80048; 80053; 81001; 82550; 82962; 84443; 85025; 85610; 85730; 87077; 87086; 87186; 93005; 96372; 97110; 97116; 97161; 97165; 99285; C1713; J0360; J0696; J1100; J1200; J1644; J1650; J1815; J2270; J2405; J2704; J3010; J3490; J7030

== ENCOUNTER → 2021-09-28 12:57 | Outpatient (BNVA) | payer MEDICARE, OTHER, SELFPAY | PROVIDERS: Visit Provider Orthopaedic Surgery | DX: S72.002D Fracture of unspecified part of neck of left femur, subsequent encounter for closed fracture with routine healing (principal); X58.XXXD Exposure to other specified factors, subsequent encounter | CPT/HCPCS: 99024 ==

== ENCOUNTER → 2021-11-07 14:29 | Outpatient (BNVA) | payer MEDICARE, OTHER, SELFPAY | PROVIDERS: Visit Provider Orthopaedic Surgery | DX: S72.002D Fracture of unspecified part of neck of left femur, subsequent encounter for closed fracture with routine healing (principal); X58.XXXD Exposure to other specified factors, subsequent encounter | CPT/HCPCS: 73502; 99024 ==

== ENCOUNTER → 2021-12-19 13:22 | Outpatient (BNVA) | payer MEDICARE, OTHER, SELFPAY | PROVIDERS: Visit Provider Orthopaedic Surgery | DX: S72.002D Fracture of unspecified part of neck of left femur, subsequent encounter for closed fracture with routine healing (principal); X58.XXXD Exposure to other specified factors, subsequent encounter | CPT/HCPCS: 73502; 99024 ==

== ENCOUNTER 2023-04-19 12:27 | Emergency (ER) | payer MEDICARE, OTHER, SELFPAY ==
[2023-04-19 12:29] VITALS: BP 182/75; PULSE 50; RESP 16; TEMP 36.4; O2SAT 92
--- NOTE | 2023-04-19 12:37 | ECG_ITS ---
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 Measurements Intervals [place] Rate: 51 P: 52 VT: 152 QRS: 11 QRSD: 81 T: 62 QT: 465 QTc: 429 Interpretive Statements SINUS BRADYCARDIA MODERATE VOLTAGE CRITERIA FOR LVH, CONSIDER NORMAL VARIANT [MEETS CRITERIA IN ONE OF: R(aVL), S(V1), R(V5), R(V5/V6)+S(V1)] POSSIBLE SEPTAL MYOCARDIAL INFARCTION , OF INDETERMINATE AGE [30 ms Q WAVE IN V1/V2] Compared to ECG 09/14/2021 09:14:00 Myocardial infarct finding now present Sinus rhythm no longer present ST (T wave) deviation no longer present Electronically Signed On 04-20-2023 5:56:31 STOCK BUYER by Steven Amaya M.D. [email or web address]
--- NOTE | 2023-04-19 12:37 | XR_ITS ---
WS: [id number] XR chest 1V 69738 REASON FOR EXAM: shortness of breath FINDINGS: Chest is unchanged compared to 10/23/2017. Moderate tortuosity and ectasia of the thoracic aorta. Normal heart size. Calcified granulomas disease in both hemithoraces. No acute or subacute pulmonary parenchymal or pleural abnormality. Bony thorax normal for age. IMPRESSION: No acute chest abnormality.
--- NOTE | 2023-04-19 12:38 | CT_ITS ---
WS: [id number] CT HEAD TECHNIQUE: Noncontrast CT of the head obtained from the skullbase to the vertex. CLINICAL INFORMATION: ams COMPARISON: CT 2018 DLP: 1010.[address] scans at [facility] use at least one of these dose optimization techniques: automated e xposure control; mA and/or kV adjustment per patient size (includes targeted exams where dose is matc hed to clinical indication); or iterative reconstruction. FINDINGS: No evidence of intracranial hemorrhage or mass effect. Ventricular system and basal cisterns are mcginnis nt. Mild small vessel changes with moderate parenchymal volume loss. No extra-axial fluid collections . No evidence of mass or mass effect. Intracranial vascular calcification. Stable chronic lacunar inf arct anterior limb LEFT internal capsule. Paranasal sinuses and mastoid air cells are well aerated. .Normal visualized soft tissues. IMPRESSION: 1. No evidence of intracranial hemorrhage or mass effect. 2. No acute intracranial findings.
--- NOTE | 2023-04-19 12:52 | ED_ITS ---
HPI - Altered Mental Status 2 General: Chief Complaint: Altered Mental Status Stated Complaint: confusion Time Seen by Provider: 04/19/23 12:35 History of Present Illness: 78-year-old woman with a history of kilo ntia who presents to the emergency room by ambulance with worsening weakness. She normally ambulates but family says she could barely get up and around this morning. No other history able to be obtained at this time. Review of Systems 2 General: Reports: ROS unobtainable due to mental status PFSH ED 2 PFSH: Medical History CKD (chronic kidney disease) Diabetes Essential tremor Fracture of hip Hyperlipidemia Intertrochanteric fracture of left hip Family History Other Cancer Dementia Social History Smoking and tobacco/nicotine status: never used tobacco/nicotine Alcohol intake: never Course 2 Vital Signs: Vital signs: Vital Signs Temperature 97.5 F L 04/19/23 12:29 Pulse Rate 51 L 04/19/23 14:09 Respiratory Rate 16 04/19/23 14:09 Blood Pressure 163/75 04/19/23 14:09 Pulse Oximetry 98 04/19/23 14:09 Oxygen Delivery Me thod Room Air 04/19/23 14:09 MDM - Altered Mental Status Medical Decision Making General: Alert, no acute distress. Skin: Warm, dry. Head: Normocephalic, atraumatic. Neck: Supple, trachea midline. Eye: Extraocular movements are intact. Ears, nose, mouth and throat: Tacky oral mucosa. Cardiovascular: Regular, Normal peripheral perfusion. Respiratory: Lungs are clear to auscultation, respirations are non-labored, breath sounds are equal, Symmetrical chest wall expansion. Gastrointestinal: Soft, Nontender, Non distended, Normal bowel sounds. Musculoskeletal: Normal ROM, no deformity. Neurological: Alert and oriented to person, pleasantly confused, No focal neurological deficit observed. Psychiatric: Cooperative Medical Records Medical decision making: Differential diagnosis including but not limited to: In this elderly woman with dementia and weakness be most concern for dehydration and urinary tract infection. Electrolyte abnormalities. Flu or COVID. Pneumonia. Workup based on differential diagnosis: See orders. Chest x-ray: No acute process. No pneumothorax. No infiltrate. No cardiomegaly. This was reviewed and interpreted by myself the ER physician. EKG: Time 12:47 PM rate [address]-T changes, no ectopy, normal [place] & QRS intervals, This was reviewed and interpreted by myself the ER physician. Lab review. Patient has mild leukocytosis of 12.4. No renal failure. No flu. No COVID. Lab Data 04/19/23 14:18 04/19/23 14:18 Laboratory Results WBC 12.41 10^3/uL (3.29-11.43) H 04/19/23 14:18 RBC 4.12 10^6/uL (3.85-5.65) 04/19/23 14:18 Hgb 11.50 g/dL (11.27-16.99) 04/19/23 14:18 Hct 34.2 % (36-47) L 04/19/23 14:18 MCV 83.0 fl (85-98) L 04/19/23 14:18 MCH 27.9 pg (27-33) 04/19/23 14:18 MCHC 33.6 g/dL (30-55) 04/19/23 14:18 RDW 12.5 % (12.1-15.1) 04/19/23 14:18 Plt Count 183 10^3/cmm (157-399) 04/19/23 14:18 MPV 10.8 fL (7.4-10.4) H 04/19/23 14:18 Neut % (Auto) 77.8 % 04/19/23 14:18 Lymph % (Auto) 16.6 % 04/19/23 14:18 [place] % (Auto) 3.8 % 04/19/23 14:18 Eos % (Auto) 0.8 % 04/19/23 14:18 Baso % (Auto) 0.6 % 04/19/23 14:18 Neut # (Auto) 9.65 10^3/uL (1.8-7.7) H 04/19/23 14:18 Lymph # (Auto) 2.1 10^3/uL (0.8-4.8) 04/19/23 14:18 [place] # (Auto) 0.5 10^3/uL (0.2-0.9) 04/19/23 14:18 Eos # (Auto) 0.1 10^3/uL (0.0-0.8) 04/19/23 14:18 Baso # (Auto) 0.1 10^3/uL (0.0-0.1) 04/19/23 14:18 Nucleated RBC % (auto) 0 % 04/19/23 14:18 Nucleated RBCs # 0.0 /100WBC 04/19/23 14:18 Potassium 5.0 mmol/L (3.5-5.1) 04/19/23 14:18 Chloride 98 mmol/L (98-107) 04/19/23 14:18 Anion Gap 16.0 (5-19) 04/19/23 14:18 GFR Calculation Not Reportable 04/19/23 14:18 POC Glucose 405 mg/dL (70-110) H 04/19/23 14:24 Total Bilirubin 0.3 mg/dL (0.15-1.2) 04/19/23 14:18 AST 9 U/L (0-32) 04/19/23 14:18 ALT 7 U/L (0-33) 04/19/23 14:18 C-Reactive Protein 3.0 mg/L (0.0-4.9) 04/19/23 14:18 Total Protein 6.6 g/dL (6.6-8.7) 04/19/23 14:18 Globulin 3.2 g/dL (1.3-4.6) 04/19/23 14:18 Coronavirus 229E (PCR) Not detected (NOT DETECT) 04/19/23 12:54 Influenza Type A Ag negative (Negative) 04/19/23 12:54 Influenza Type B Ag negative (Negative) 04/19/23 12:54 SARS-CoV-2 (PCR) Not detected (NOT DETECT) 04/19/23 12:54 All radiology interpretation(s) finalized by discharge Other Data - 1 L normal saline bolus for dehydration. IV Rocephin for urinary tract infection. Patient appears somewhat improved at this time. -Received secondary history from the family. Daughter came by to check on her for the first time a few days because the daughter had been sick and had not been able to come by. said that she was wandering more last night and they had a rough night. This morning she was so weak that she fell over. Daughter caught her. - Discharged home - Discussed findings and plan with patient. Answered any questions. - All laboratory values were reviewed and interpreted personally by myself, the ER physician - All imaging was reviewed and interpreted personally by myself, the ER physician. - Evaluation and treatment of this problem were appropriate in the emergency setting Discharge Plan Discharge Patient Disposition: Home Clinical Impression: Urinary tract infection, Dementia, Dehydration Condition: Stable Prescriptions: New cefdinir 300 mg capsule 300 mg PO BID 5 Days Qty: 10 0RF No Action propranolol 20 mg Tablet 20 mg PO BID sertraline 50 mg tablet 50 mg PO DAILY Lantus Solostar U-100 Insulin 100 unit/mL (3 mL) insulin pen 12 unit SUBCUT DAILY Discharge Orders: Discharge ED (Routine); Ordered 04/19/23 Ordered By: Елена Mathur Referrals: Osmin Oliva, [Primary Care Provider] - (You have been screened and evaluated and felt safe for discharge. Health conditions do change or evolve sometimes and as such it is important that you follow up with your Primary Doctor to be re checked, 3-5 days is a general good time frame for follow up. You are always welcome to return to the ED for re assessment if your symptoms are worsening or you have new concerns) Patient Instructions: Altered Mental Status (ED), Opioid Safety, Pain Management Coding Level of Care Code ED Flow Specialist for Erin Bhatt
[2023-04-19 12:59] VITALS: BP 182/75; PULSE 50; RESP 16; O2SAT 95
[2023-04-19] MEDS: sodium chloride 0.9% 1,000 ML 999 ML IV (13:09)
[2023-04-19 13:15] LABS: Influenza A by IFA negative (Negative); Influenza B by IFA negative (Negative)
[2023-04-19 14:06] LABS: Glucose Point of Care 411 mg/dL (70-110)
[2023-04-19 14:09] VITALS: BP 163/75; PULSE 51; RESP 16; O2SAT 98
[2023-04-19] MEDS: insulin regular-human 100 units/1 mL 10 UNIT IVP (14:25)
[2023-04-19 14:29] LABS: Glucose Point of Care 405 mg/dL (70-110)
[2023-04-19 14:46] LABS: Adenovirus Not Detected (NOT DETECT); Chlamydia Pneumoniae Not Detected (NOT DETECT); Coronavirus 229E,HKU1,NL63,OC4 Not Detected (NOT DETECT); Human Metapneumovirus Not Detected (NOT DETECT); Human Rhinovirus/Enterovirus Not Detected (NOT DETECT); Influenza A Not Detected (NOT DETECT); Influenza A H1 Not Detected (NOT DETECT); Influenza A H1-2009 Not Detected (NOT DETECT); Influenza A H3 Not Detected (NOT DETECT); Influenza B Not Detected (NOT DETECT); Mycoplasma Pneumoniae Not Detected (NOT DETECT); Parainfluenza Virus Type 1 Not Detected (NOT DETECT); Parainfluenza Virus Type 2 Not Detected (NOT DETECT); Parainfluenza Virus Type 3 Not Detected (NOT DETECT); Parainfluenza Virus Type 4 Not Detected (NOT DETECT); Respiratory Syncytial Virus A Not Detected (NOT DETECT); Respiratory Syncytial Virus B Not Detected (NOT DETECT); SARS-COV-2 Not Detected (NOT DETECT)
[2023-04-19 14:56] LABS: Basophils # 0.1 10^3/uL (0.0-0.1); Basophils % 0.6 %; Eosinophils # 0.1 10^3/uL (0.0-0.8); Eosinophils % 0.8 %; Hematocrit 34.2 % (36-47); Lymphocytes # 2.1 10^3/uL (0.8-4.8); Lymphocytes % 16.6 %; Mean Corpuscular HGB Conc 33.6 g/dL (30-55); Mean Corpuscular Hemoglobin 27.9 pg (27-33); Mean Platelet Volume 10.8 fL (7.4-10.4); Monocytes # 0.5 10^3/uL (0.2-0.9); Monocytes % 3.8 %; Neutrophils # 9.65 10^3/uL (1.8-7.7); Neutrophils % 77.8 %; Nucleated Red Blood Cells % 0 %; Platelet Count 183 10^3/cmm (157-399); Red Blood Count 4.12 10^6/uL (3.85-5.65); Red Cell Distribution Width 12.5 % (12.1-15.1); White Blood Count 12.41 10^3/uL (3.29-11.43)
[2023-04-19 15:19] LABS: Alanine Aminotransferase 7 U/L (0-33); Albumin Level 3.4 g/dL (3.5-5.2); Alkaline Phosphatase 122 U/L (35-105); Aspartate Amino Transferase 9 U/L (0-32); Blood Urea Nitrogen 46 mg/dL (8-23); Calcium 8.4 mg/dL (8.5-10.5); Carbon Dioxide 20 mmol/L (22-29); Chloride 98 mmol/L (98-107); Globulin 3.2 g/dL (1.3-4.6); Glucose 444 mg/dL (65-115); Osmolality Calculated 299 mOsm/kg (285-295); Sodium 129 mmol/L (136-145); Total Bilirubin 0.3 mg/dL (0.15-1.2); Total Protein 6.6 g/dL (6.6-8.7)
[2023-04-19 15:20] LABS: Lactic Sepsis W/Reflex 1.2 mmol/L (0.5-2.2)
--- NOTE | 2023-04-19 15:20 | PC.NURSE ---
Repeat Glucose: 305 via fingerstick @1518, ED provider notified.
[2023-04-19 15:21] LABS: Glucose Point of Care 305 mg/dL (70-110)
[2023-04-19 15:26] LABS: Procalcitonin 0.05 ng/mL (0-0.5)
[2023-04-19] MEDS: cefTRIAXone 1,000 MG in sodium chloride 0.9% (plus) 50 ML 100 MG IV (15:38)
[2023-04-19 15:46] VITALS: PULSE 55; RESP 14; O2SAT 97
[2023-04-19 15:50] VITALS: BP 163/75; PULSE 55; RESP 14; TEMP 36.4; O2SAT 97
== END 2023-04-19 16:13 | disposition home or self-care (01) ==
PROVIDERS: Emergency Provider Emergency Medicine; PCP Internal Medicine
DX: N39.0 Urinary tract infection, site not specified (principal); F03.90 Unspecified dementia, unspecified severity, without behavioral disturbance, psychotic disturbance, mood disturbance, and anxiety; E86.0 Dehydration; E11.65 Type 2 diabetes mellitus with hyperglycemia; Z79.4 Long term (current) use of insulin; Z11.52 Encounter for screening for COVID-19; E11.22 Type 2 diabetes mellitus with diabetic chronic kidney disease; N18.9 Chronic kidney disease, unspecified; E78.5 Hyperlipidemia, unspecified
CPT/HCPCS: 36415; 36416; 70450; 71045; 80053; 82962; 83605; 84145; 85025; 86140; 87040; 87635; 87804; 93005; 96365; 96375; 99285; J0696; J1815; J7030

== ENCOUNTER → 2024-07-07 08:16 | Outpatient (BNVA) | payer MEDICARE, OTHER, SELFPAY | PROVIDERS: PCP Internal Medicine; Visit Provider Physician Assistant | DX: S42.201A Unspecified fracture of upper end of right humerus, initial encounter for closed fracture (principal); W19.XXXA Unspecified fall, initial encounter | CPT/HCPCS: 73030; 99203 ==